=== PATIENT | male | born 1995 | race American Indian/Alaskan Native ===

== ENCOUNTER 2021-04-04 10:44 | Emergency (ER) | payer SELFPAY ==
[2021-04-04] MEDS ORDERED: IBUPROFEN 600 MG TAB PO ONE (12:41)
[2021-04-04] MEDS ORDERED: METOCLOPRAMIDE 10 MG TAB PO ONE (12:41)
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
[2021-04-04 14:33] VITALS: BP 122/80
== END 2021-04-04 14:32 | disposition home or self-care (01) ==
LOC: ED 10:44
DX: S09.90XA Unspecified injury of head, initial encounter (principal); M79.18 Myalgia, other site; Z79.899 Other long term (current) drug therapy; V87.7XXA Person injured in collision between other specified motor vehicles (traffic), initial encounter; Y93.89 Activity, other specified; Y92.488 Other paved roadways as the place of occurrence of the external cause; Y99.8 Other external cause status
CPT/HCPCS: 99282